=== PATIENT | male | born 1965 | race Caucasian/White ===

== ENCOUNTER 2017-09-25 14:13 | Emergency (ER) | payer MEDICARE, SELFPAY ==
[2017-09-25 14:14] VITALS: BP 146/93; PULSE 110; RESP 20; TEMP 37.2; O2SAT 93
[2017-09-25] MEDS: DiphenhydrAMINE 50 MG/ML Syringe IV (14:37)
[2017-09-25 14:43] VITALS: O2SAT 96
--- NOTE | 2017-09-25 15:15 | ED.DCSUM_ITS ---
- ER Visit Summary Date of Service: 09/25/17 Chief Complaint: Anaphylaxis History of Present Illness: The patient is a 51 M who states that 1 hour prior to arrival he was stung by a brown loss on his left arm. He states he rapidly developed hives. 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 Patient states that he is not having any shortness of breath and he is not having any difficulty speaking or swallowing. He has not taken any home medicines. Physical Examination: Afebrile vital signs are stable Gen: Well-nourished well-developed Head: Normocephalic atraumatic Eyes: Perrl EOMI ENT: TMs clear no rhinorrhea moist mucous membranes Neck: Supple no lymphadenopathy no JVD nontender CVS: Regular rate rhythm no murmurs normal S1-S2 Respiratory: No distress clear to auscultation bilaterally chest nontender Abdomen: Soft nontender nondistended normal bowel sounds no masses Back: Nontender Extremity: Nontender no edema Skin: Patient has diffuse erythema and urticaria most pronounced on the trunk. Neuro: alert orientated ?3 chronic changes on the right side associated with cerebral palsy Psych: Normal affect normal mood Emergency Department Course and Treatment: The patient was placed on the monitor. IV is established and he received Decadron, Benadryl, and Pepcid. He was observed. He will be discharged home with instructions for Benadryl. Return if worsening or concerns. Impression: 1. Acute allergic reaction to hymenoptera envenomation This note was generated with [employer] dictation software. It may contain incorrect words, spelling, and punctuation that were not noted in review of the chart prior to signing ED Disposition - Plan for ED Patient: Disposition: Home or Assisted Living Chief Complaint: Allergic Reaction Instructions: ED Bite Sting Insect Gen Allergic React Prescriptions: Epinephrine [Epi Pen] 0.3 mg IM X1 PRN #1 syringe PRN Reason: Anaphylaxis Referrals: Steven Dwyer MD [Primary Care Provider] - As Needed Additional Instructions: I would recommend Benadryl 25 mg every 8 hours for the next 24 hours.
[2017-09-25 15:20] VITALS: BP 142/97; PULSE 86; RESP 16; O2SAT 98
[2017-09-25 16:04] VITALS: BP 138/95; PULSE 82; RESP 15; O2SAT 98
[2017-09-25 16:20] VITALS: BP 138/95; PULSE 82; O2SAT 98
== END 2017-09-25 16:20 | disposition home or self-care (01) ==
PROVIDERS: Emergency Provider Emergency Medicine; Family Provider Family Medicine; PCP Family Medicine
DX: T63.441A Toxic effect of venom of bees, accidental (unintentional), initial encounter (principal); T78.2XXA Anaphylactic shock, unspecified, initial encounter; X58.XXXA Exposure to other specified factors, initial encounter; G80.9 Cerebral palsy, unspecified
CPT/HCPCS: 99285; J7030; A4216; J3490

== ENCOUNTER → 2020-05-31 07:58 | Outpatient (CLI) | payer MEDICARE, SELFPAY ==
--- NOTE | 2020-05-31 08:25 | RAD_ITS ---
PROCEDURE: Fluoroscopic guided right shoulder Injection DATE: 05/31/2020 INDICATION: Male, 54 years old. Chronic right shoulder pain. PHYSICIAN: Yannick Pandya M.D. MEDICATIONS: 12 mg of BETAMETHASONE and 4 cc of 1% LIDOCAINE. 2% LIDOCAINE administered subcutaneously for local anesthesia. ACCESS SITE: Right shoulder. NEEDLE: 22-gauge spinal needle. FLUOROSCOPY TIME (if supplied): (0:45) minutes/seconds FINDINGS: The risks, benefits, and alternatives to the procedure were explained to the patient. The specific risks of bleeding, infection, and neurovascular injury were detailed and accepted. Witnessed informed consent was obtained. A 22-gauge spinal needle was positioned under radiographic fluoroscopic localization. Approximately 2 cc of ISOVUE-300 instilled for localization purposes. Medication was then injected. The patient tolerated the procedure well without any immediate complications. RAD/Inj/Asp Ambrose Jt Should/Hip/Knee IMPRESSION: 1. Successful fluoroscopic guided right shoulder injection. Electronically Signed: Yannick Pandya MD at 12:51 EDT , Service support ,
== END ==
PROVIDERS: PCP Family Medicine; Referring Provider Physician Assistant Surgical; Visit Provider Physician Assistant Surgical
DX: M19.011 Primary osteoarthritis, right shoulder (principal)
CPT/HCPCS: 20610; 77002; Q9967; J0702